=== PATIENT | female | born 1960 | race Caucasian/White ===

== ENCOUNTER 2018-01-20 15:40 | Emergency (ER) | payer BC, OTHER ==
[2018-01-20] MEDS ORDERED: Adacel (T-DAP) 0.5 ML VIAL ONE (16:38)
[2018-01-20] MEDS ORDERED: Bacitracin Zinc 1 Packet ONE (16:39)
--- NOTE | 2018-01-20 16:49 | RAD ---
RIGHT ANKLE THREE VIEWS: HISTORY: Injury to right foot after trauma from door. TECHNIQUE: AP, lateral, and oblique views of the right foot are obtained. FINDINGS: Three views of the right foot demonstrate no evidence of right foot fractures, subluxations, or bony lesions. A small calcaneal bone spur is seen. IMPRESSION: Normal three views right foot. POS: [facility]
== END 2018-01-20 17:00 | disposition home or self-care (01) ==
LOC: ERS 15:40
DX: S91.341A Puncture wound with foreign body, right foot, initial encounter (principal); J45.909 Unspecified asthma, uncomplicated; I10 Essential (primary) hypertension; Z79.899 Other long term (current) drug therapy; W45.8XXA Other foreign body or object entering through skin, initial encounter
CPT/HCPCS: 28190; 90471; 90715

== ENCOUNTER 2018-06-25 23:44 | Observation (INO) | payer OTHER ==
[2018-06-26 00:16] LABS: #Basophils 0.1 thou/uL (0.0-0.2); #Eosinphils 0.9 thou/uL (0.0-0.7); #Lymphocytes 2.7 thou/uL (1.20-3.40); #Monocytes 0.7 thou/uL (0.11-0.59); #Neutrophils 6.1 thou/uL (1.40-6.50); %Basophils 0.6 % (0.0-1.0); %Eosinophils 8.4 % (0.0-10.0); %Lymphocytes 25.8 % (21.0-51.0); %Monocytes 6.6 % (0.0-10.0); %Neutrophils 58.5 % (42.0-75.0); Hemoglobin 12.6 g/dL (12.0-16.0); Mean Corpuscular HGB CONC 33.2 g/dL (32.0-36.0); Mean Corpuscular Hemoglobin 30.1 pg (27.0-31.0); Mean Corpuscular Volume 90.7 fL (78.0-98.0); Mean Platelet Volume 6.6 fL (7.4-10.4); Platelet Count 317 thou/uL (130-400); RBC Distribution Width 12.3 % (11.5-14.5); Red Blood Cell (RBC) Count 4.18 mill/uL (4.20-5.40); White Blood Cell (WBC) Count 10.4 thou/uL (4.8-10.8)
[2018-06-26 00:40] LABS: ALT (SGPT) 21 U/L (8-55); AST (SGOT) 16 U/L (5-34); Albumin 3.7 g/dL (3.5-5.0); Alkaline Phosphatase 117 U/L (40-150); Anion Gap 11 mmol/L (10-20); BUN (Urea Nitrogen) 14 mg/dL (9.8-20.1); Bilirubin, Total 0.4 mg/dL (0.2-1.2); CK (CPK) 145 U/L (29-168); Calc. Creatinine Clearance 0 mL/min (70-130); Calcium 9.3 mg/dL (7.8-10.44); Carbon Dioxide 28 mmol/L (22-29); Chloride 102 mmol/L (98-107); Estimated GFR-MDRD 76; Globulin 3.8 g/dL (2.4-3.5); Glucose 141 mg/dL (70-105); Potassium 3.6 mmol/L (3.5-5.1); Protein, Total 7.5 g/dL (6.0-8.3); Sodium 137 mmol/L (136-145)
[2018-06-26] MEDS ORDERED: hydrALAZINE 20 MG/ML VIAL ONE (00:51)
[2018-06-26] MEDS ORDERED: Acetaminophen 500 MG TAB ONE (02:09)
[2018-06-26 04:02] LABS: Troponin I Less than 0.010 ng/mL (< 0.028)
[2018-06-26 07:18] LABS: Troponin I Less than 0.010 ng/mL (< 0.028)
--- NOTE | 2018-06-26 07:36 | RAD ---
EXAM: Portable chest PROVIDED CLINICAL HISTORY: Chest pain COMPARISON: 08/01/2014 FINDINGS: Cardiac and mediastinal silhouette is within normal limits. No focal consolidation, pleural fluid or pneumothorax evident. IMPRESSION: No evidence for an acute cardiopulmonary process.
--- NOTE | 2018-06-26 08:22 | HP ---
PRIMARY CARE PROVIDER: Berna Alegre. Referred to [facility] by [facility] for chest pain. HISTORY OF PRESENT ILLNESS: The patient was at a meeting last night. She noticed a cramp in her right arm that resolved. Then, she had a sharp pain in her chest. It lasted 15 to 20 minutes. No sweats. She was short of breath with it. According to a witness at bedside, she turned action. She had no dizziness at that time, but was dizzy earlier in the day. No fainting. PAST MEDICAL HISTORY: Hypertension, asthma. MEDICATIONS: She has an inhaler. She takes Hyzaar 50/12.5 once a day. ALLERGIES: ALLERGIC TO PENICILLINS, CAUSED ITCHING, IT IS A REMOTE HISTORY. PAST SURGICAL HISTORY: Cholecystectomy, tubal ligation, and removal of a vaginal cyst. FAMILY HISTORY: There is coronary artery disease on her mother side of the family. Her maternal grandfather had diabetes. SOCIAL HISTORY: . Full code status. Son, Kenny Mclaughlin, is next of kin. She quit smoking 5 years ago. Smoked 1 pack a day for many years. Uses very occasional alcohol. REVIEW OF SYSTEMS: GENERAL: Some headache with the nitroglycerin. No fainting. No fever or chills. EYES: She has blurred vision occasionally. She relates it to spending many hours in front of a computer. No double vision. No flashing lights. EAR, NOSE, AND THROAT: No ear pain or drainage. No nasal bleeding. No trouble swallowing. CARDIAC: No chest pressure, chest pain, or orthopnea. RESPIRATIONS: As it has been a long time since she has had an asthma attack, but she states she has had a dry cough for a while. GASTROINTESTINAL: No nausea, vomiting, abdominal pain, or diarrhea. GENITOURINARY: No hematuria, dysuria, or nocturia. MUSCULOSKELETAL: She states she has occasional "Charley horse in her legs." Otherwise, no complaints. NEUROLOGICAL: No strokes, seizures, or focal weakness. PSYCHIATRIC: No anxiety or depression. SKIN: No bruising, bleeding, or rash. HEME/LYMPH: No tender or swollen lymph nodes in the axilla, inguinal, or cervical area. PHYSICAL EXAMINATION: GENERAL: She is alert, pleasant lady, in no distress. VITAL SIGNS: Blood pressure 144/72, pulse 72, respirations 16, and temperature 98.5. HEAD, EYES, EARS, NOSE, AND THROAT: Reveal pupils are equal, round, and reactive to light. Extraocular movements are intact. Sclerae are white. Nose is clear. Oral mucous membranes are wet. Dental hygiene is good. NECK: No jugular venous distention, adenopathy, or thyromegaly. CHEST: Clear to auscultation and percussion. HEART: Had a regular rate and rhythm. First and second heart sounds are clear. No murmurs or gallops. ABDOMEN: Soft. Bowel sounds are normal. There is no hepatosplenomegaly. No mass. No rebound. EXTREMITIES: Reveal no cyanosis, clubbing, or edema. PULSES: Carotid, radial, femoral, and dorsalis pedis pulses are intact. SKIN: Warm and dry with what looks like athlete's foot on her feet. She states it is simply dry skin. HEME/LYMPH: No tender or swollen lymph nodes in the axilla or inguinal area. NEUROLOGIC: Cranial nerves II through XII are intact. Moves all extremities. IMAGING DATA: EKG normal, reviewed by me. Chest x-ray mildly underpenetrated. No cardiomegaly, CHF, infiltrate, reviewed by me. LABORATORY DATA: CBC unremarkable. Comprehensive metabolic profile, blood sugar 141, otherwise unremarkable. Cardiac enzymes normal x3. ADMITTING DIAGNOSES: 1. Chest pain. 2. Hypertension. 3. History of asthma. PLAN: The patient has had aspirin. Serial troponins are normal. We will do an exercise Cardiolite stress test. Re-evaluate when that is available. Job ID: [id number]
[2018-06-26] MEDS ORDERED: Acetaminophen 325 MG TAB ONE (08:30)
[2018-06-26] MEDS ORDERED: Aspirin 325 mg Enteric Coated Tablet PO SCH (09:00)
[2018-06-26] MEDS ORDERED: Regadenoson 0.4 MG/5 ML SYRINGE ONE (11:39)
--- NOTE | 2018-06-26 12:12 | NM ---
NM Cardiac Stress W EF WF History: [Chest pain, asthma, hypertension] Comparison: None. Findings: Stress only images were obtained after the intravenous administration of 33 mCi technetium 99m sestamibi. No evidence of scar or ischemia. Adequate left ventricular uptake of radiotracer. Normal wall motion. Calculated ejection fraction is 76%. Impression: Normal nuclear medicine cardiac stress test and injection fraction.
--- NOTE | 2018-06-26 15:00 | DIS ---
DATE OF ADMISSION: 06/26/2018 DATE OF DISCHARGE: 06/26/2018 PRIMARY CARE PROVIDER: Berna Garcia. DISPOSITION: Discharged to home. FINAL DIAGNOSES: 1. Noncardiac chest pain. 2. Hypertension. 3. Asthma. DISCHARGE MEDICATIONS: Hyzaar 50/12.5 once a day. ALLERGIES: PENICILLINS. PENDING AT THE TIME OF DISCHARGE: Nothing. DIET: Regular. HOSPITAL COURSE: The patient presented with atypical sharp chest pain, preceded by cramp in her right arm. She also noted some minimal shortness of breath. EKG which was normal. Chest x-ray was unrevealing. Serial cardiac enzymes were normal. CBC and comprehensive metabolic profile were unremarkable. The patient was unable to do an exercise Cardiolite stress test and required a chemical Cardiolite stress test, it was normal. This was relayed to the patient. She expressed some uncomfortable with not knowing what caused that. I explained to her that we look for life-threatening disease. Her studies are normal. She looks good that she needs to follow up within 1 week with her primary care doctor for further testing if indicated. CONSULTATIONS OBTAINED: No consultations obtained. PROCEDURES DONE: No procedures done. Job ID: [id number]
--- NOTE | 2018-06-29 14:35 | EKG ---
Test Reason : CP Blood Pressure : / mmHG Vent. Rate : 073 BPM Atrial Rate : 073 BPM P-R Int : 154 ms QRS Dur : 074 ms QT Int : 388 ms P-R-T Axes : 039 069 049 degrees QTc Int : 427 ms Normal sinus rhythm Nonspecific ST abnormality Abnormal ECG Confirmed by CORINNE ONTIVEROS ([id number]), editor department MARIA VICTORIA MARKHAM ([id number]) on 06/29/2018 2:35:39 PM Referred By: Confirmed By:CORINNE ONTIVEROS
== END 2018-06-26 15:13 | disposition home or self-care (01) ==
LOC: ERS 23:44 → ERHOLD 06-26 01:38
PROVIDERS: ADMIT Family Medicine; ATTEND Family Medicine
DX: R07.89 Other chest pain (principal); I10 Essential (primary) hypertension; J45.909 Unspecified asthma, uncomplicated; R06.02 Shortness of breath; R25.2 Cramp and spasm; Z79.899 Other long term (current) drug therapy; Z88.0 Allergy status to penicillin; Z87.891 Personal history of nicotine dependence
CPT/HCPCS: 36415; 71045; 78452; 80053; 82550; 84484; 85025; 93005; 93017; 96374; A9500; G0378; J0360; J2785

== ENCOUNTER 2018-10-07 20:45 | Inpatient (IN) | payer OTHER ==
[2018-10-08 00:13] LABS: #Eosinphils 0.1 thou/uL (0.0-0.7); #Lymphocytes 2.6 thou/uL (1.20-3.40); #Neutrophils 12.2 thou/uL (1.40-6.50); %Basophils 0.2 % (0.0-1.0); %Eosinophils 0.5 % (0.0-10.0); %Monocytes 6.5 % (0.0-10.0); %Neutrophils 76.8 % (42.0-75.0); Hemoglobin 13.7 g/dL (12.0-16.0); Mean Corpuscular HGB CONC 33.3 g/dL (32.0-36.0); Mean Corpuscular Hemoglobin 30.6 pg (27.0-31.0); Mean Platelet Volume 6.8 fL (7.4-10.4); Platelet Count 384 thou/uL (130-400); RBC Distribution Width 13.2 % (11.5-14.5); Red Blood Cell (RBC) Count 4.46 mill/uL (4.20-5.40); White Blood Cell (WBC) Count 15.9 thou/uL (4.8-10.8)
[2018-10-08 00:21] LABS: Prothrombin Time 12.7 SEC (12.0-14.7)
[2018-10-08 00:35] LABS: ALT (SGPT) 26 U/L (8-55); AST (SGOT) 14 U/L (5-34); Albumin 3.9 g/dL (3.5-5.0); Alkaline Phosphatase 101 U/L (40-150); Anion Gap 16 mmol/L (10-20); BUN (Urea Nitrogen) 36 mg/dL (9.8-20.1); Bilirubin, Total 0.3 mg/dL (0.2-1.2); Calc. Creatinine Clearance 0 mL/min (70-130); Carbon Dioxide 23 mmol/L (22-29); Chloride 99 mmol/L (98-107); Estimated GFR-MDRD 56; Globulin 3.8 g/dL (2.4-3.5); Glucose 264 mg/dL (70-105); Potassium 4.3 mmol/L (3.5-5.1); Protein, Total 7.7 g/dL (6.0-8.3); Sodium 134 mmol/L (136-145)
[2018-10-08] MEDS ORDERED: Dextrose 5% in Water 1,000 ML IV PRN (00:54)
[2018-10-08] MEDS ORDERED: Insulin Regular 300 UNITS/3 ML VIAL SC PRN (00:54)
[2018-10-08] MEDS ORDERED: Dextrose 50% Abboject 50 ML SYRINGE SLOW IVP PRN (00:54)
[2018-10-08] MEDS ORDERED: Ondansetron ODT 4 MG TAB PO PRN (01:06)
[2018-10-08] MEDS ORDERED: Acetaminophen 650 MG Suppository PR PRN ×2 (01:06→14:44)
[2018-10-08] MEDS ORDERED: Acetaminophen 325 MG TAB PO PRN ×2 (01:06→14:44)
[2018-10-08] MEDS ORDERED: Sodium Chloride 0.9% 1,000 ML IV SCH (01:30)
[2018-10-08] MEDS: Dexamethasone 4 MG TAB PO SCH ×4 (02:07→21:08)
[2018-10-08 03:00] VITALS: BMI 43.9
--- NOTE | 2018-10-08 03:37 | HP ---
PRIMARY CARE PHYSICIAN: Dr. Flower. CHIEF COMPLAINT: Worsening upper extremity weakness and numbness. HISTORY OF PRESENT ILLNESS: Ms. Lunsford is a 57-year-old woman, who is being followed by Neurosurgery for persisting right upper extremity numbness and weakness, which the patient states initially started in June of this year. She underwent an MRI today which demonstrated cord compression at C3/C4. The patient was advised to seek medical attention if her symptoms worsened. She was recently discharged from the hospital on steroids and also had been started on metformin 3 days ago due to new onset of diabetes, which was deemed to be associated with steroid use. The patient states she was doing well until earlier today, when she began to experience the tingling sensation in her left arm. The patient states her symptoms have primarily involved the right upper extremity. She describes numbness and weakness with an occasional pulling sensation. The numbness extends to her shoulder. Her left arm today however has started feeling "tingly" with some very minimal weakness. The patient states she was afraid, given the changes and opted to come in for evaluation. The patient has been seen by Dr. Marquis Almonte, who has advised keeping her overnight and for review by Dr. Saha in the morning for possible surgery. REVIEW OF SYSTEMS: At this present time, the patient denies having any pain. No nausea or vomiting. Denies having any shortness of breath or chest discomfort. No abdominal pain or cramping. She denies having any urinary incontinence or stool incontinence. She does still have weakness in the right arm, but has not noted any further worsening. PAST MEDICAL HISTORY: 1. Hypertension. 2. New onset diabetes mellitus. 3. Pulmonary disease. 4. Asthma. 5. Vaginal cysts. 6. Cervical cord compression. PAST SURGICAL HISTORY: 1. Vaginal cyst removed. 2. Cholecystectomy. 3. Tubal ligation. SOCIAL HISTORY: The patient denies any tobacco use, alcohol use, or illicit drug use. ALLERGIES: PENICILLIN. CURRENT MEDICATIONS: 1. Dexamethasone. 2. Losartan/Hydrochlorothiazide. 3. Metformin. PHYSICAL EXAMINATION: GENERAL: The patient appears overweight, well developed, well nourished, and is in no acute distress. VITAL SIGNS: Temperature 98.5, pulse 82, respirations 18, O2 saturation 93% on room air, and blood pressure 142/86. HEENT: Normocephalic and atraumatic. Pupils are equal, round, and reactive to light. Sclerae icterus. Oropharynx is clear. NECK: Supple without lymphadenopathy. Does have an [place] collar in place. Therefore, range of motion is limited. LUNGS: Clear to auscultation bilaterally. CARDIAC: Regular rate and rhythm. ABDOMEN: Soft, nontender, nondistended. Normoactive bowel sounds present. EXTREMITIES: No lower leg swelling or edema. NEUROLOGIC: Alert and oriented x3. Reduced strength in the right upper extremity with reduced sensation in the right lower and upper extremity. Right arm numbness extends from the fingers to the right shoulder. Reports tingling sensation in the left upper extremity. Power 3/5 in the right hand and 4/5 in the left. Plantar reflexes intact. LABORATORY DATA: White blood count 15.9, hemoglobin 13.7, hematocrit 41.1, and platelets 384. Sodium 134, potassium 4.3, BUN 26, creatinine 1.06, GFR 56, glucose 264, calcium 10. LFTs unremarkable. Albumin 3.9. IMAGING DATA: 1. Chest x-ray done. 2. No report available for MRI. IMPRESSION AND PLAN: Ms. Lunsford is a pleasant 57-year-old woman, who has been referred for management of the following. 1. Severe cervical spine stenosis with cord compression as per the patient's report of MRI done earlier today. The patient with a new tingling in the left upper extremity and persistent weakness in the right upper extremity. Neurosurgery aware and Dr. Saha will review in the morning, likely for a discussion on surgical options. Continue to monitor. Resume steroids. 2. New onset of diabetes mellitus. The patient has been on metformin for last 3 days. We will check CBC and BMP. If renal function adequate, we will resume metformin. We will also initiate insulin sliding scale. 3. Hypertension. Resume home medications once reconciled. Monitor blood pressure. 4. Gastrointestinal prophylaxis. 5. Deep venous thrombosis prophylaxis with mechanical SCDs. Pharmacoprophylaxis contraindicated given the possibility of surgery. 6. Code status, full. Surrogate decision maker could not be appointed at this time. The patient's case was discussed with Dr. Bustamante, who agrees with plan of care as described above. Job ID: [id number]
[2018-10-08 05:23] LABS: #Eosinphils 0.1 thou/uL (0.0-0.7); #Lymphocytes 2.4 thou/uL (1.20-3.40); #Monocytes 0.8 thou/uL (0.11-0.59); #Neutrophils 10.7 thou/uL (1.40-6.50); %Eosinophils 0.9 % (0.0-10.0); %Lymphocytes 16.8 % (21.0-51.0); %Monocytes 5.8 % (0.0-10.0); %Neutrophils 76.5 % (42.0-75.0); Hemoglobin 12.7 g/dL (12.0-16.0); Mean Corpuscular HGB CONC 32.8 g/dL (32.0-36.0); Mean Corpuscular Hemoglobin 30.5 pg (27.0-31.0); Mean Corpuscular Volume 93.1 fL (78.0-98.0); Platelet Count 338 thou/uL (130-400); RBC Distribution Width 13.3 % (11.5-14.5); Red Blood Cell (RBC) Count 4.16 mill/uL (4.20-5.40)
[2018-10-08 05:46] LABS: Anion Gap 13 mmol/L (10-20); BUN (Urea Nitrogen) 34 mg/dL (9.8-20.1); Calc. Creatinine Clearance 131 mL/min (70-130); Calcium 9.7 mg/dL (7.8-10.44); Carbon Dioxide 25 mmol/L (22-29); Chloride 101 mmol/L (98-107); Estimated GFR-MDRD 61; Glucose 226 mg/dL (70-105); Potassium 4.4 mmol/L (3.5-5.1); Sodium 135 mmol/L (136-145)
[2018-10-08] MEDS: HumaLOG 300 UNITS/3 ML VIAL SC PRN ×3 (05:57→21:38)
--- NOTE | 2018-10-08 07:11 | RAD ---
CHEST ONE VIEW: INDICATIONS: Weakness in the extremities. COMPARISON: 06/26/2018 IMPRESSION: The examination is unchanged from the comparison. No acute cardiopulmonary abnormalities. POS: [facility]
[2018-10-08] MEDS: Famotidine/PF 20 mg/2ml Vial SLOW IVP SCH ×2 (08:01→20:35)
[2018-10-08] MEDS: metFORMIN 500 MG TAB PO SCH ×2 (08:01→18:11)
[2018-10-08] MEDS: Losartan/Hydrochlorothiazide 100 mg/25 mg Tablet PO SCH (08:01)
[2018-10-08] MEDS ORDERED: Clindamycin/D5W 900 mg/50 ml Premix Bag ONE (08:22)
[2018-10-08] MEDS ORDERED: Levofloxacin 500 mg/D5W 100 ml Premix Bag ONE (08:22)
--- NOTE | 2018-10-08 08:28 | RAD ---
EXAM: XR Cervical Sp Com W/Obl Fl/Ex DATE: 10/08/2018 6:37 AM INDICATION: Surgical planning COMPARISON: None. FINDING: Lateral masses are symmetric. There is mild multilevel disc degenerative disease most prono unced at C4-5 and C5-6. There is slight retrolisthesis of C4 on C5 in the neutral lateral positioning with no abnormal translational motion. There is very subtle anterolisthesis of C3 on C4 t hat is accentuated with flexion but reduced in the neutral and hyperextension position. Prevertebral soft tissues are normal appearing. Lung apices are clear. IMPRESSION: 1. Mild spondylosis of the cervical spine. 2. Slight retrolisthesis of C4 on C5 without abnormal translational motion. 3. Mild anterolisthesis of C3 on C4 with flexion only. This is reduced on the neutral and hyperextens ion lateral positions.
[2018-10-08] MEDS ORDERED: Thrombin 5000 UNITS/5 ML VIAL ONE (09:09)
[2018-10-08] MEDS ORDERED: Sodium Chloride 0.9% 10 ML ONE (09:09)
--- NOTE | 2018-10-08 10:15 | CON ---
DATE OF CONSULTATION: HISTORY OF PRESENT ILLNESS: Ms. Lunsford is a 57-year-old female, known to our Neurosurgery Group. She was seen yesterday in our office for severe cervical cord compression with weakness in the upper extremity. She went to the emergency department last night for worsening symptoms of weakness in the upper extremity and imbalance. She has been admitted to the hospital and I am seeing her this morning. She is resting comfortably in her room. She has weakness more profoundly in the right hand, but weakness in right upper extremity. She has numbness and tingling in both hands and burning sensation in forearm. Her hand feels different than the other one. She has some pain in the low back and weakness in her legs. MRI was done at [facility] showing a severe cord compression at C4-5 with some compression at C5-6 as well. REVIEW OF SYSTEMS: A 10-point review of systems has been completed and is negative other than stated in the above HPI. PAST MEDICAL HISTORY: Hypertension, new onset of diabetes type 2, pulmonary disease, asthma, vaginal cyst, and cervical cord compression. PAST SURGICAL HISTORY: Vaginal cyst removed, cholecystectomy, and tubal ligation. SOCIAL HISTORY: The patient denies tobacco use, alcohol use, or any other drug use. ALLERGIES: PENICILLIN. CURRENT MEDICATIONS: 1. Dexamethasone. 2. Losartan/Hydrochlorothiazide. 3. Metformin. PHYSICAL EXAMINATION: CONSTITUTIONAL: The patient is alert and oriented. She is not in any visible distress. VITAL SIGNS: She is afebrile. HEENT: Head is normocephalic and atraumatic. Pupils are equal, round, and reactive to light. Extraocular movements are intact. Hearing is intact. Moist mucous membranes. RESPIRATIONS: Normal work of breathing on room air. Symmetric chest rise. EXTREMITIES: The patient is able to move all 4 extremities. There is weakness in the right upper extremity, 4+/5 in right deltoids and biceps, 4/5 triceps on the right and 4- wrist extension, finger extension, and finger intrinsics on the right. There is decreased sensation in the right hand compared to the left. NEUROLOGIC: The patient is awake and oriented x3. Speech is spontaneous and fluent. Normal fund of knowledge. Cranial nerves II through XII are intact. There is sensory change in the right hand compared to the left. There are brisk reflexes and 3+ clonus. IMAGING: MRI of cervical spine shows severe cord compression at C4-5 with cord edema as well as stenosis at C5-6. ASSESSMENT AND PLAN: Dr. Rodriguez has offered to perform an anterior cervical discectomy and fusion to relieve this cord compression. We will do that later this morning. We need flexion and extension x-rays for surgical planning. If there are any further questions, please contact the Neurosurgery Team. Job ID: [id number] MTDD
[2018-10-08] MEDS ORDERED: Fentanyl 100 MCG/2 ML VIAL ONE ×3 (10:19→13:39)
[2018-10-08] MEDS ORDERED: Promethazine HCl 25 MG/ML VIAL SLOW IVP PRN (11:08)
[2018-10-08] MEDS ORDERED: Ondansetron HCl/PF 4 MG/2 ML Vial IVP PRN (11:08)
[2018-10-08] MEDS ORDERED: Promethazine HCl 25 MG/ML VIAL IM PRN ×2 (11:08→14:44)
[2018-10-08] MEDS ORDERED: Ondansetron PF 4 MG/2 ML Vial IVP PRN (14:44)
[2018-10-08] MEDS ORDERED: Milk Of Magnesia 30 ML UDCUP PO PRN (14:44)
[2018-10-08] MEDS ORDERED: diphenhydrAMINE 25 MG CAP PO PRN (14:44)
[2018-10-08] MEDS ORDERED: Mag-Al 1200 mg/1200 mg/30 ML UDCUP PO PRN (14:44)
[2018-10-08] MEDS ORDERED: Promethazine 25 MG TAB PO PRN (14:44)
[2018-10-08] MEDS ORDERED: Promethazine HCl 12.5 MG SUPP PR PRN (14:44)
[2018-10-08] MEDS ORDERED: Morphine 4 MG/ML VIAL SLOW IVP PRN (14:44)
[2018-10-08] MEDS ORDERED: Bisacodyl 10 MG SUPP PR PRN (14:44)
[2018-10-08] MEDS ORDERED: Acetaminophen/Codeine 30-300mg Tablet PO PRN (14:44)
[2018-10-08] MEDS ORDERED: Prochlorperazine 10 MG/2 ML VIAL IM PRN (14:44)
[2018-10-08] MEDS ORDERED: diphenhydrAMINE 50 MG/ML VIAL IVP PRN (14:44)
[2018-10-08] MEDS ORDERED: tiZANidine HCl 4 MG TAB PO PRN (14:44)
[2018-10-08] MEDS ORDERED: Morphine 2 MG/ML SYRINGE SLOW IVP PRN (14:47)
--- NOTE | 2018-10-08 14:56 | OP ---
DATE OF PROCEDURE: 10/08/2018 MEDIA/INSTRUCTIONAL DESIGNER: Zaida León PA-C. PREOPERATIVE INDICATION: Prevent further neurological deterioration. PREOPERATIVE DIAGNOSIS: Cervical intervertebral disk disease with cord compression and myelopathy at C4-C5, C5-C6. POSTOPERATIVE DIAGNOSIS: Cervical intervertebral disk disease with cord compression and myelopathy at C4-C5, C5-C6. PROCEDURES PERFORMED: Anterior cervical diskectomy, intervertebral arthrodesis, placement of intervertebral biomechanical device, anterior cervical plating C4-C5 and C5-C6, local morselized autograft, morselized allograft, and operating microscope. PREOPERATIVE MEDICATIONS: 1. Levaquin 500 mg IV. 2. Clindamycin 900 mg IV. DRAIN NUMBER: Zero. DRAIN TYPE: None. DESCRIPTION OF PROCEDURE: The patient was brought to the operating room. Keeping the neck in normal anatomic alignment, general endotracheal anesthesia was induced. The patient was carefully positioned supine on the operating table with her head gently supported by a gel-filled doughnut shaped headrest. A lateral fluoro radiograph was used to plan our incision. The right side of the neck was sterilely prepped and draped. We opened our incision with a 10 blade knife and controlled bleeding with bipolar cautery. We dissected sharply to the platysma and cut this muscle in line with our incision. We continued our dissection medial to the sternocleidomastoid and lateral to the trachea and esophagus until we arrived to the prevertebral space. We placed a marker at C4-C5 and took a lateral fluoro radiograph to confirm the levels upon which we were operating. We then elevated the longus colli muscles off the anterior surface of C4, C5, and C6 and placed self-retaining retractors beneath them. Distraction pins were placed at C4 and C6 and we distracted across both of the intervening interspaces. We incised the C4-C5 and C5-C6 interspace with a 15 blade knife and removed disk contents using curettes and rongeurs. As we approached the posterior longitudinal ligament, the operative microscope was brought into the field. Under microscopic magnification and using microsurgical techniques, we removed the remainder of the intervertebral disk. We accessed the ventral epidural space with a microcurette and using [place] rongeurs, we removed posterior osteophytes and posterior longitudinal ligament across the entire interspace from one neural foramen all the way to the other, decompressing the thecal sac along the way. This occurred at C4-C5 and C5-C6. We then turned our attention to arthrodesis. Using curettes, we prepared the endplates for grafting. We measured the height of the interspace to 8 mm at C4-C5 and 7 mm at C5-C6. The appropriately-sized PEEK intervertebral grafts were brought into the field. Osteophytes removed during our decompression were cleaned of soft tissue attachments morcellized and added into demineralized bone matrix to form a fusion substrate. The substrate was packed into the PEEK grafts and those grafts were advanced into their interspaces under radiographic guidance to the appropriate depth. We removed our distraction pins and the operative microscope. A 31 mm anterior cervical plate was brought into the field. We drilled fixed wing pilot holes through the plate into the vertebral bodies at C4, C5, and C6 and affixed the plate using 14 mm screws. Fixed angle screws were used at C6 and variable angle screws at C4 and C5. We engaged the locking mechanism over each of the 6 screws. We irrigated copiously with bacitracin irrigation. We took AP and lateral fluoro radiographs, confirmed adequate position of all our instrumentation. We closed in anatomical layers and we applied a sterile dressing. This was a clean case, no contamination. Job ID: [id number]
[2018-10-08] MEDS: Acetaminophen/Codeine 30-300mg Tablet PO PRN ×2 (15:39→20:35)
[2018-10-08] MEDS ORDERED: Clindamycin/D5W 900 MG in Premix Bag 1 BAG IVPB SCH ×2 (16:00→19:00)
[2018-10-08] MEDS: Sodium Chloride 0.9% 1,000 ML IV SCH (16:05)
[2018-10-08] MEDS ORDERED: Cepastat Lozenges 1 LOZ PO PRN (18:04)
--- NOTE | 2018-10-08 18:37 | PDOC.HOSPP ---
- Subjective Subjective: f/u for cervical radiculopathy/myelopathy and RU/RLE weakness s/p C4-C5, C5-C6 decompression. Feels better overall but some stiffness in neck. - Objective Vital Signs & Weight: Vital Signs (12 hours) Temp Pulse Resp BP Pulse Ox 10/08/18 14:20 98 F 58 L 18 150/81 H 96 Weight Weight 280 lb 2 oz I&O: 10/07/18 10/08/18 10/09/18 06:59 06:59 06:59 Intake Total 770 Balance 770 Result Diagrams: 10/08/18 04:49 10/08/18 04:49 Additional Labs: Accuchecks 10/08/18 10/08/18 10/08/18 16:03 08:01 05:24 POC Glucose 235 H 205 H 227 H Radiology Reviewed by me: Yes (PCXR - no acute changes) ROS - Review of Systems All systems: All other ROS were reviewed and found negative. - Medication Medications: Active Medications Generic Name Dose Route Start Last Admin Trade Name Freq PRN Reason Stop Dose Admin Acetaminophen/Codeine Phosphate 2 tab 10/08/18 14:44 10/08/18 15:39 Tylenol #3 PO 2 tab Q3H PRN Administration PAIN (4-6) Famotidine 20 mg 10/08/18 09:00 10/08/18 08:01 Pepcid SLOW IVP Not Given Q12HR RAFA HCTZ/Losartan Potassium 1 tab 10/08/18 09:00 10/08/18 08:01 Hyzaar 100/25 PO Not Given DAILY RAFA Sodium Chloride 1,000 mls @ 75 mls/hr 10/08/18 14:44 10/08/18 16:05 Normal Saline 0.9% IV Not Given .[id number] RAFA Insulin Human Lispro 0 units 10/08/18 00:54 10/08/18 18:09 Humalog SC 3 unit .MILD SLIDING SCALE PRN Administration Mild Correctional Scale Insulin Human Lispro 0 units 10/08/18 00:54 10/08/18 05:57 Humalog SC 2 unit .BEDTIME SLIDING SC PRN Administration Bedtime Correctional Scale Metformin HCl 1,000 mg 10/08/18 08:00 10/08/18 18:11 Glucophage PO 1,000 mg BID-WM RAFA Administration - Exam NAD, awake alert Eye: PERRL, anicteric sclera ENT: normocephalic atraumatic, no oropharyngeal lesions Neck: supple, symmetric, no JVD Heart: RRR, no murmur, no gallops, no rubs Respiratory: CTAB, no wheezes, no rales, no ronchi Gastrointestinal: soft, non-tender, non-distended, normal bowel sounds Extremities: no cyanosis, no edema Skin: normal turgor, no lesions Neurological: CN's grossly intact, normal sensation to touch Musculoskeletal: no muscle wasting, generalized weakness (mild decreased R office worker strength) Psychiatric: normal affect, A&O x 3 Hosp A/P (1) Cervical myelopathy with cervical radiculopathy Code(s): M47.12 - OTHER SPONDYLOSIS WITH MYELOPATHY, CERVICAL REGION Status: Acute Plan: s/p cervical decompression, pain control, C-collar, PT/OT (2) Cervical spinal stenosis Code(s): M48.02 - SPINAL STENOSIS, CERVICAL REGION Status: Acute Plan: See above, consider HH with PT/OT (3) Diabetes mellitus type II, uncontrolled Code(s): E11.65 - TYPE 2 DIABETES MELLITUS WITH HYPERGLYCEMIA Status: Chronic Plan: ISS, continue Metformin, ADA (4) HTN (hypertension) Code(s): I10 - ESSENTIAL (PRIMARY) HYPERTENSION Status: Chronic Qualifiers: Hypertension type: essential hypertension Qualified Code(s): I10 - Essential (primary) hypertension Plan: Continue Losartan/HCTZ, serial monitoring - Plan plan discussed w/ family, continue antibiotics, PT/OT, social economist, out of bed/ambulate, DVT proph w/SCDs Stable currently Continue Pain control as clinically indicated OOB with PT/OT Continue IVF's AM lab: BMP, CBC Likely home in 24h with HH/PT/OT
[2018-10-09] MEDS: Dexamethasone 4 MG TAB PO SCH ×4 (04:48→21:08)
[2018-10-09 05:43] LABS: Anion Gap 14 mmol/L (10-20); BUN (Urea Nitrogen) 24 mg/dL (9.8-20.1); Calc. Creatinine Clearance 140 mL/min (70-130); Calcium 10.1 mg/dL (7.8-10.44); Carbon Dioxide 27 mmol/L (22-29); Chloride 98 mmol/L (98-107); Estimated GFR-MDRD 65; Glucose 173 mg/dL (70-105); Potassium 4.3 mmol/L (3.5-5.1); Sodium 135 mmol/L (136-145)
[2018-10-09 06:12] LABS: Band 9 % (5-11); Lymphocytes 18 % (21-51); MDiff Complete? YES; Mean Corpuscular HGB CONC 31.8 g/dL (32.0-36.0); Mean Corpuscular Hemoglobin 29.8 pg (27.0-31.0); Mean Corpuscular Volume 93.8 fL (78.0-98.0); Mean Platelet Volume 6.8 fL (7.4-10.4); Monocytes 6 % (0-10); Neutrophil 67 % (42-75); Platelet Count 418 thou/uL (130-400); RBC Distribution Width 13.2 % (11.5-14.5); Red Blood Cell (RBC) Count 4.68 mill/uL (4.20-5.40); White Blood Cell (WBC) Count 20.2 thou/uL (4.8-10.8)
[2018-10-09] MEDS: Sodium Chloride 0.9% 1,000 ML IV SCH ×2 (06:55→16:05)
[2018-10-09] MEDS: HumaLOG 300 UNITS/3 ML VIAL SC PRN ×3 (07:22→16:04)
[2018-10-09] MEDS: metFORMIN 500 MG TAB PO SCH ×2 (08:53→16:04)
[2018-10-09] MEDS: Famotidine/PF 20 mg/2ml Vial SLOW IVP SCH ×2 (08:54→21:08)
[2018-10-09] MEDS: Losartan/Hydrochlorothiazide 100 mg/25 mg Tablet PO SCH (09:42)
--- NOTE | 2018-10-09 13:57 | PRG ---
DATE OF SERVICE: 10/09/2018 Ms. Lunsford is one day out from anterior cervical diskectomy and fusion C4-5, C5-6. Ms. Lunsford is doing well this morning. 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 She still has heaviness and strength loss on that side. However, she is showing improvement so far. She says the tingling in her feet has improved also. Ms. Lunsford is wanting to stay one more night in the hospital while her friends are arranging her home, so that she can move around more easily with the use of a walker while she is recovering. She has no recorded fevers overnight. There were no events overnight. Ms. Lunsford is able to discharge home when she is ready. Hope that physical therapy will work with her some while she is here. Medications are already arranged and so is her followup appointment in our office. Job ID: [id number]
--- NOTE | 2018-10-09 17:46 | PDOC.HOSPP ---
- Subjective Subjective: f/u s/p C4-C5, C5-C6 diskectomy POD #1. Feels better overall with increased strength in R hand. - Objective Vital Signs & Weight: Vital Signs (12 hours) Temp Pulse Resp BP Pulse Ox 10/09/18 15:28 97.3 F L 60 18 146/84 H 97 10/09/18 10:57 97.5 F L 63 18 143/83 H 98 10/09/18 09:41 97.9 F 67 18 157/84 H 98 Weight Weight 280 lb 2 oz I&O: 10/08/18 10/09/18 10/10/18 06:59 06:59 06:59 Intake Total 770 Balance 770 Result Diagrams: 10/09/18 05:10 10/09/18 05:10 Additional Labs: Accuchecks 10/09/18 10/09/18 10/09/18 15:33 11:02 06:11 POC Glucose 185 H 213 H 173 H 10/08/18 21:15 POC Glucose 264 H ROS - Review of Systems All systems: All other ROS were reviewed and found negative. - Medication Medications: Active Medications Generic Name Dose Route Start Last Admin Trade Name Freq PRN Reason Stop Dose Admin Acetaminophen/Codeine Phosphate 2 tab 10/08/18 14:44 10/08/18 20:35 Tylenol #3 PO 2 tab Q3H PRN Administration PAIN (4-6) Dexamethasone 4 mg 10/08/18 22:00 10/09/18 16:05 Decadron PO 4 mg 0400,1000,1600,2200 RAFA Administration Famotidine 20 mg 10/08/18 09:00 10/09/18 08:54 Pepcid SLOW IVP 20 mg Q12HR RAFA Administration HCTZ/Losartan Potassium 1 tab 10/08/18 09:00 10/09/18 09:42 Hyzaar 100/25 PO 1 tab DAILY RAFA Administration Sodium Chloride 1,000 mls @ 75 mls/hr 10/08/18 14:44 10/09/18 16:05 Normal Saline 0.9% IV Not Given .[id number] RAFA Insulin Human Lispro 0 units 10/08/18 00:54 10/09/18 16:04 Humalog SC 2 unit .MILD SLIDING SCALE PRN Administration Mild Correctional Scale Insulin Human Lispro 0 units 10/08/18 00:54 10/08/18 21:38 Humalog SC 3 unit .BEDTIME SLIDING SC PRN Administration Bedtime Correctional Scale Metformin HCl 1,000 mg 10/08/18 08:00 10/09/18 16:04 Glucophage PO 1,000 mg BID-WM RAFA Administration Sodium Chloride 10 ml 10/08/18 14:44 10/08/18 20:36 Flush - Normal Saline IVF 10 ml PRN PRN Administration Saline Flush Throat Lozenges 1 leodan 10/08/18 18:04 10/09/18 04:48 Cepastat Lozenges PO 1 leodan PRN PRN Administration .SORE THROAT - Exam NAD, awake alert Eye: PERRL, anicteric sclera ENT: normocephalic atraumatic, no oropharyngeal lesions Neck: supple, symmetric, no JVD, no Thyromegaly Heart: RRR, no murmur, no gallops, no rubs Respiratory: CTAB, no wheezes, no rales, no ronchi Gastrointestinal: soft, non-tender, non-distended, normal bowel sounds Extremities: no cyanosis, no clubbing, no edema Skin: normal turgor, no lesions Neurological: CN's grossly intact, no new deficit (R meeting/event planner strength 4/5 compared to L) Psychiatric: normal behavior, A&O x 3 Hosp A/P (1) Cervical myelopathy with cervical radiculopathy Code(s): M47.12 - OTHER SPONDYLOSIS WITH MYELOPATHY, CERVICAL REGION Status: Acute Plan: s/p ACDF POD #1, pain control, ROM exercises, C-collar (2) Cervical spinal stenosis Code(s): M48.02 - SPINAL STENOSIS, CERVICAL REGION Status: Acute Plan: See above #1 (3) Diabetes mellitus type II, uncontrolled Code(s): E11.65 - TYPE 2 DIABETES MELLITUS WITH HYPERGLYCEMIA Status: Chronic Plan: Labile due to Dexamethasone, continue ISS, Metformin, ADA (4) HTN (hypertension) Code(s): I10 - ESSENTIAL (PRIMARY) HYPERTENSION Status: Chronic Qualifiers: Hypertension type: essential hypertension Qualified Code(s): I10 - Essential (primary) hypertension Plan: Continue Losartan/HCTZ and monitor response - Plan PT/OT, social service worker, incentive spirometry, out of bed/ambulate, DVT proph w/ SCDs Stable currently Continue pain control OOB/ambulate CM assisting with HH/PT on d/c Likely home in 24h
[2018-10-10] MEDS: Dexamethasone 4 MG TAB PO SCH ×3 (04:24→16:45)
[2018-10-10] MEDS: HumaLOG 300 UNITS/3 ML VIAL SC PRN (06:09)
[2018-10-10] MEDS: Sodium Chloride 0.9% 1,000 ML IV SCH (06:32)
[2018-10-10] MEDS: Famotidine/PF 20 mg/2ml Vial SLOW IVP SCH (09:38)
[2018-10-10] MEDS: metFORMIN 500 MG TAB PO SCH ×2 (09:38→16:45)
[2018-10-10] MEDS: Losartan/Hydrochlorothiazide 100 mg/25 mg Tablet PO SCH (09:38)
--- NOTE | 2018-10-10 14:22 | PRG ---
DATE OF SERVICE: 10/10/2018 This is Alberto Su PA-C dictating a report for Cahparro Narayanan MD. Ms. Lunsford is now postoperative day #2, having undergone C4-C6 ACDF. She states she is feeling significantly better even compared to yesterday. She has good strength in the bilateral upper extremities and has had some difficulty with swallowing, although is tolerating a liquid diet as well as pills. She was discharged yesterday, however, needed some more time for recovery as well as for her family to prepare her home. She is ready for discharge today. She has been up walking, and she will follow up with Dr. Rodriguez and Dr. Cerda postoperatively. She is again doing well neurosurgically. We will call with questions or concerns. Otherwise, she is safe for discharge within the time. Job ID: [id number]
[2018-10-10 15:19] VITALS: BP 141/81; TEMP 97.7
--- NOTE | 2018-10-11 05:43 | DIS ---
DATE OF ADMISSION: 10/07/2018 DATE OF DISCHARGE: 10/10/2018 DISCHARGE DIAGNOSES: 1. Cervical myelopathy with cervical radiculopathy status post anterior cervical diskectomy, C4 on C5 and C5 on C6, 10/08/2018. 2. Cervical spinal stenosis. 3. Diabetes mellitus type 2, labile. 4. Hypertension, stable. CONSULTATIONS: Dr. Rodriguez with Neurosurgical Service. PERTINENT LAB AND X-RAY FINDINGS: Basic metabolic profile within normal limits. CBC showed a white blood cell count ranged between 14.0 to 20.2. Portable chest x-ray dated 10/07/2018, showed no acute cardiopulmonary process. Cervical spine radiographs dated 10/08/2018, showed mild spondylosis of the cervical spine. Retrolisthesis of C4 on C5. Mild anterolisthesis of C3 on C4. HOSPITAL COURSE: The patient was initially admitted after presenting with severe cervical cord compression with weakness of the right upper and lower extremity. The patient underwent general evaluation including MRI imaging showing severe cord compression at C4 on C5, C5 on C6. The patient was evaluated by the Neurosurgical Services with recommendations to pursue surgical intervention. The patient underwent anterior cervical diskectomy on 10/08/2018 without complication. Neurologic deficits including weakness of the right upper and lower extremity, improved postoperatively as patient was ambulating with a rolling walker and political geographer strength was returning to baseline levels. The patient continued to clinically improve with recommendations for ongoing physical and occupational therapy through home health services after discharge. The patient received oral pain medications with Tylenol No. 3 and Zanaflex for muscle spasms. The patient overall clinically stable and tolerating regular oral intake. I have examined the patient at the time of discharge and discussed followup instructions. The patient verbalized understanding and agreement ready for discharge on 10/10/2018. DISCHARGE MEDICATIONS: 1. Losartan/hydrochlorothiazide 100/25 mg 1 tablet p.o. daily. 2. Metformin 1000 mg p.o. b.i.d. 3. Tylenol No. 3 of 300 mg/30 mg one to two tablets p.o. q.6 hours p.r.n. pain. 4. Dexamethasone 4 mg p.o. t.i.d. x2 days, followed by 1 tab p.o. b.i.d. x2 days, followed by 1 tab p.o. daily x2 days. 5. Zanaflex 4 mg p.o. q.6 hours p.r.n. muscle spasms. FOLLOWUP: The patient may follow up with her primary care provider, Dr. Rhonda Flower, within 7 days of discharge. The patient will follow up with Dr. Rodriguez and neurosurgical team and to call his office for appointment time and date. CONDITION ON DISCHARGE: Stable. ACTIVITY: Ad-martha. DIET: ADA and heart healthy. SPECIAL INSTRUCTIONS: A rolling walker with ambulation. Cervical collar per neurosurgical instructions. CODE STATUS: Full. DISPOSITION: Home with [facility], 10/10/2018. Job ID: [id number]
== END 2018-10-10 18:20 | disposition home health service (06) | DRG 472 ==
LOC: ERS 20:45 → SURG A 21:30
PROVIDERS: ADMIT Hospitalist; ATTEND Hospitalist
PROC: 0RG20A0 Fusion of 2 or more Cervical Vertebral Joints with Interbody Fusion Device, Anterior Approach, Anterior Column, Open Approach (ICD-10-PCS; principal; 2018-10-08)
PROC: 00NW0ZZ Release Cervical Spinal Cord, Open Approach (ICD-10-PCS; 2018-10-08)
PROC: 0RT30ZZ Resection of Cervical Vertebral Disc, Open Approach (ICD-10-PCS; 2018-10-08)
DX: M50.21 Other cervical disc displacement, high cervical region (principal); G99.2 Myelopathy in diseases classified elsewhere; I10 Essential (primary) hypertension; E11.9 Type 2 diabetes mellitus without complications; J45.909 Unspecified asthma, uncomplicated; M48.02 Spinal stenosis, cervical region; M54.12 Radiculopathy, cervical region; Z98.51 Tubal ligation status; Z90.49 Acquired absence of other specified parts of digestive tract; Z88.0 Allergy status to penicillin
CPT/HCPCS: 36415; 36416; 71045; 72052; 76000; 80048; 80053; 85025; 85610; 85730; 93005; C1713; C1776; J0780; J1956; J3010; J3490; J8540; S0028

== ENCOUNTER 2018-10-28 21:13 | Inpatient (IN) | payer BC, OTHER ==
[2018-10-28 21:53] LABS: #Basophils 0.1 thou/uL (0.0-0.2); #Eosinphils 0.5 thou/uL (0.0-0.7); #Lymphocytes 2.7 thou/uL (1.20-3.40); #Monocytes 0.8 thou/uL (0.11-0.59); #Neutrophils 3.6 thou/uL (1.40-6.50); %Basophils 0.7 % (0.0-1.0); %Eosinophils 6.6 % (0.0-10.0); %Neutrophils 46.7 % (42.0-75.0); Hemoglobin 11.9 g/dL (12.0-16.0); Mean Corpuscular HGB CONC 34.9 g/dL (32.0-36.0); Mean Corpuscular Hemoglobin 32.1 pg (27.0-31.0); Mean Platelet Volume 6.9 fL (7.4-10.4); Platelet Count 277 thou/uL (130-400); RBC Distribution Width 12.6 % (11.5-14.5); Red Blood Cell (RBC) Count 3.71 mill/uL (4.20-5.40); White Blood Cell (WBC) Count 7.6 thou/uL (4.8-10.8)
[2018-10-28 22:13] LABS: ALT (SGPT) 33 U/L (8-55); AST (SGOT) 15 U/L (5-34); Albumin 3.5 g/dL (3.5-5.0); Alkaline Phosphatase 121 U/L (40-150); Anion Gap 14 mmol/L (10-20); BUN (Urea Nitrogen) 16 mg/dL (9.8-20.1); Bilirubin, Total 0.3 mg/dL (0.2-1.2); Calc. Creatinine Clearance 0 mL/min (70-130); Calcium 9.6 mg/dL (7.8-10.44); Carbon Dioxide 28 mmol/L (22-29); Chloride 99 mmol/L (98-107); Estimated GFR-MDRD 70; Globulin 3.4 g/dL (2.4-3.5); Glucose 125 mg/dL (70-105); Potassium 3.7 mmol/L (3.5-5.1); Protein, Total 6.9 g/dL (6.0-8.3); Sodium 137 mmol/L (136-145)
[2018-10-29] MEDS ORDERED: Gabapentin 300 MG CAP PO SCH ×2 (00:30→22:15)
--- NOTE | 2018-10-29 07:37 | ULT ---
PRELIMINARY REPORT/[facility]/AFTER HOURS PROCEDURE EXAM: US Duplex Bilateral Lower Extremity Veins EXAM DATE/TIME: 10/28/2018 11:17 PM CLINICAL HISTORY: 57 years old, female; Edema, localized and other: Bilat redness; Lower extremity, bilateral; Leg, lower; Patient HX: Ble pain/edema/redness; Additional info: Recent neck surgery TECHNIQUE: Imaging protocol: Real-time duplex ultrasound of the Bilateral Lower Extremities with 2-D reyes scale, color Doppler flow and spectral waveform analysis with image documentation. Complete exam focused on the bilateral lower extremity veins. COMPARISON: No relevant prior studies available. FINDINGS: Right deep veins: Unremarkable. The common femoral, femoral, proximal profunda femoral and popliteal veins are patent without thrombus. Normal Doppler waveforms. Normal compressibility and/or augmentation response. Right superficial veins: Saphenofemoral junction is patent without thrombus. Left deep veins: Unremarkable. The common femoral, femoral, proximal profunda femoral and popliteal veins are patent without thrombus. Normal Doppler waveforms. Normal compressibility and/or augmentation response. Left superficial veins: Saphenofemoral junction is patent without thrombus. Soft tissues: Superficial edema. IMPRESSION: 1. Superficial edema. 2. No DVT. Thank you for allowing us to participate in the care of your patient. Dictated and Authenticated by: Luis Armando Estevez MD 10/29/2018 1:06 AM Central Time ([place] & [place]) FINAL REPORT BILATERAL LOWER EXTREMITY VENOUS DOPPLER ULTRASOUND: I agree with the report given by Dr. Luis Armando Estevez of [facility]. CODE QA Transcribed Date/Time: 10/29/2018 8:29 AM
[2018-10-29] MEDS ORDERED: Acetaminophen 325 MG TAB PO PRN (07:53)
[2018-10-29] MEDS ORDERED: HumaLOG 300 UNITS/3 ML VIAL SC PRN (07:53)
[2018-10-29] MEDS ORDERED: Ondansetron PF 4 MG/2 ML Vial IVP PRN (07:53)
[2018-10-29] MEDS ORDERED: Dextrose 50% Abboject 50 ML SYRINGE SLOW IVP PRN (07:53)
[2018-10-29] MEDS ORDERED: Dextrose 5% in Water 1,000 ML IV PRN (07:53)
[2018-10-29] MEDS ORDERED: Losartan/Hydrochlorothiazide 100 mg/25 mg Tablet PO SCH (09:00)
[2018-10-29] MEDS ORDERED: Vancomycin HCl 1 GM in Sodium Chloride 0.9% 250 ML 250 ML IVPB SCH (09:00)
[2018-10-29] MEDS ORDERED: Enoxaparin Sodium 40 MG/0.4 ML SYRINGE ONE (09:07)
[2018-10-29] MEDS ORDERED: Furosemide 20 MG/2 ML VIAL ONE (09:07)
--- NOTE | 2018-10-29 09:14 | HP ---
CHIEF COMPLAINT: Lower extremity edema and erythema. HISTORY OF PRESENT ILLNESS: The patient is a 57-year-old female with 5-day history of gradually increased swelling in the lower extremities along with erythema of the lower extremities. She denies any pain. She did not feel feverish. She did not have any fever or chills. She had recently surgery on her neck and she wears the C-collar on her neck. This was done by Dr. Rodriguez on the 08 of October. She was seen by Dr. Rodriguez's PA yesterday and she is doing quite well. Her numbness of her right upper extremity and motor weakness to the right upper extremity and right lower extremity is improving and she is feeling better in terms of her neurological problems she had prior to the neck surgery. She denied any nausea, vomiting, or diarrhea. She denied any chest pain. She denied any shortness of breath. She was recently diagnosed with diabetes mellitus. PAST MEDICAL HISTORY: Positive for, 1. Diabetes mellitus, type 2. 2. Hypertension. 3. History of asthma as a child. PAST SURGICAL HISTORY: 1. Laminectomy at C3-C6. 2. Vaginal cyst surgery. 3. Cholecystectomy. 4. Tubal ligation. SOCIAL HISTORY: She denies any alcohol intake, cigarette smoking, or using any illicit drugs. FAMILY HISTORY: Father had esophageal cancer and at the age of 69 and mother had heart disease and she at the age of 59. Her primary care physician is Dr. Rhonda Flower. Surrogate decision maker is her friend, Lazara. ALLERGIES: PENICILLIN. CURRENT MEDICATIONS: 1. Losartan/hydrochlorothiazide 100 mg/25 mg one tablet once a day. 2. Metformin 500 mg 2 tablets twice a day. 3. Gabapentin 300 mg 3 times a day. REVIEW OF SYSTEMS: Positive for sacral ulcer of 2 days duration. Otherwise, all 14 systems were reviewed and they were negative except findings in the HPI. PHYSICAL EXAMINATION: GENERAL: She is not in any distress during my visit. She is obese. VITAL SIGNS: Her blood pressure is 134/97, pulse is 90, respirations 18, temperature is 99.0 , and O2 saturation 95% on room air. HEENT: Head is atraumatic and normocephalic. Eyes are PERRLA. Sclerae are nonicteric. Oral mucosa is moist. NECK: Supple. She wears C-collar. LUNGS: Clear. HEART: S1 and S2 normal. No S3. No S4. No any murmur. ABDOMEN: Soft, obese, and tender. Bowel sounds present. No organomegaly. EXTREMITIES: Approximately 2+ peripheral edema on both lower extremities with erythema on the lower extremities below the knee and above ankles erythema process. Pulses diminished on both tibialis posterior and dorsalis pedis arteries similar bilaterally. NEUROLOGICAL: She is alert and oriented x4. There are no psychiatric abnormalities. Follows my commands. There is no any sensory deficit. There is mild difference between the right lower extremity strength and the lower extremity. The left side rated at 4/5. There is equal strength of both upper extremities. LABORATORY DATA: White count of 7.6, hemoglobin of 11.9, hematocrit 34.1, and platelet count is 277. Normal chemistry except for glucose, which is 125. IMAGING DATA: Doppler of the lower extremities did not show any abnormalities. No clots. IMPRESSION: 1. Peripheral edema with erythema of both lower extremities below the knees, which is most likely related to her obesity. Question infectious etiology because the changes are bilateral, but her temperature is elevated. Her normal temperature is running around 97 and a maximal temperature in the emergency room was 99.6. She got evaluated, but we will treat her for possible infectious etiology with vancomycin. She received her dose last night. She will have 1 g every 12 hours IV piggyback and the levels will be followed by the pharmacist. 2. Fever, which is most likely related to her lower extremity erythema, but also she has new gluteal ulcer, would be the source. Also, I am going to check her urine for any infection. 3. Diabetes mellitus, type 2, new diagnosis. 4. Normocytic anemia. We will check guaiac. 5. History of asthma as a child. 6. Hypertension. PLAN: Full admission. Condition is fair. Activity, bedrest and bathroom privileges. PT p.r.n. Urinalysis, IV Hep-Lock, vancomycin 1 g every 12 hours IV piggyback. Accu-Cheks a.c. and at bedtime and mild sliding-scale coverage. DVT prophylaxis with Lovenox 40 mg subcutaneously every 24 hours. Continue home medications except for metformin. Job ID: [id number]
[2018-10-29] MEDS ORDERED: HumaLOG 300 UNITS/3 ML VIAL ONE (09:38)
[2018-10-29] MEDS: Furosemide 20 MG/2 ML VIAL SLOW IVP SCH (09:46)
[2018-10-29] MEDS: Enoxaparin Sodium 40 MG/0.4 ML SYRINGE SC SCH (10:03)
[2018-10-29 10:05] VITALS: BMI 44.6
[2018-10-29] MEDS: Vancomycin HCl 1.75 GM in Sodium Chloride 0.9% 500 ML IVPB SCH (13:48)
[2018-10-29 22:29] LABS: Bilirubin Negative (Negative); Blood, Urine Negative (Negative); Clarity Clear (Clear); Glucose, Urine (Dipstick) Normal (Negative); Leukocyte Negative Leu/uL (Negative); Mucous/LPF Rare LPF (<2+); Nitrite Negative (Negative); Protein, Urine (Dipstick) Negative (Neg-Trace); RBC/HPF 0-3 HPF (0-3); Squamous Epithelial 0-3 HPF (0-3); Urobilinogen Normal mg/dL (Less than 2); WBC/HPF 0-3 HPF (0-3)
[2018-10-29 22:37] LABS: Bacteria/HPF Rare-Few HPF (None Seen)
[2018-10-30] MEDS: Vancomycin HCl 1.75 GM in Sodium Chloride 0.9% 500 ML IVPB SCH ×2 (00:38→12:14)
[2018-10-30 05:48] LABS: #Eosinphils 0.5 thou/uL (0.0-0.7); #Lymphocytes 2.1 thou/uL (1.20-3.40); #Monocytes 0.6 thou/uL (0.11-0.59); #Neutrophils 2.3 thou/uL (1.40-6.50); %Basophils 0.7 % (0.0-1.0); %Eosinophils 9.1 % (0.0-10.0); %Lymphocytes 38.1 % (21.0-51.0); %Monocytes 11.4 % (0.0-10.0); %Neutrophils 40.7 % (42.0-75.0); Hemoglobin 10.3 g/dL (12.0-16.0); Mean Corpuscular HGB CONC 34.4 g/dL (32.0-36.0); Mean Corpuscular Hemoglobin 31.9 pg (27.0-31.0); Mean Corpuscular Volume 92.8 fL (78.0-98.0); Mean Platelet Volume 7.1 fL (7.4-10.4); Platelet Count 226 thou/uL (130-400); RBC Distribution Width 12.8 % (11.5-14.5); Red Blood Cell (RBC) Count 3.23 mill/uL (4.20-5.40); White Blood Cell (WBC) Count 5.6 thou/uL (4.8-10.8)
[2018-10-30 06:18] LABS: Anion Gap 10 mmol/L (10-20); BUN (Urea Nitrogen) 14 mg/dL (9.8-20.1); Calc. Creatinine Clearance 160 mL/min (70-130); Calcium 8.9 mg/dL (7.8-10.44); Carbon Dioxide 31 mmol/L (22-29); Chloride 100 mmol/L (98-107); Estimated GFR-MDRD 77; Glucose 119 mg/dL (70-105); Potassium 3.2 mmol/L (3.5-5.1); Sodium 138 mmol/L (136-145)
[2018-10-30] MEDS ORDERED: tiZANidine HCl 4 MG TAB PO PRN (06:57)
[2018-10-30] MEDS ORDERED: Potassium Chloride 20 MEQ TAB PO SCH ×2 (07:15→14:00)
[2018-10-30] MEDS: Enoxaparin Sodium 40 MG/0.4 ML SYRINGE SC SCH (08:08)
[2018-10-30] MEDS: Furosemide 20 MG/2 ML VIAL SLOW IVP SCH (08:08)
[2018-10-30] MEDS: Losartan/Hydrochlorothiazide 100 mg/25 mg Tablet PO SCH (09:17)
--- NOTE | 2018-10-30 13:11 | PRG ---
DATE OF SERVICE: 10/30/2018 SUBJECTIVE: The patient is seen and examined at the bedside. She did some walking this morning. She feels better. OBJECTIVE: VITAL SIGNS: Her temperature is 98.5, maximal temperature was 99.3 yesterday, pulse is 85, respirations 16, O2 saturation is 96% on room air, and her blood pressure is 138/82. HEENT: She wears the C-collar. Her head is atraumatic and normocephalic. Her eyes are PERRLA. Sclerae are nonicteric. NECK: Not examined since she wears the collar. LUNGS: Clear. HEART: S1 and S2, normal. No S3. No S4. ABDOMEN: Obese, soft, and nontender. EXTREMITIES: 2+ peripheral edema with erythema on both lower extremities, somewhat improved. NEUROLOGIC: She is alert and oriented x4. There are no any sensory deficits. There is some mild weakness in the right lower extremity, but that is improving according to her. LABORATORY DATA: Showed white count of 5.6, hemoglobin 10.3, hematocrit 30.0. Chemistry; sodium of 138, potassium 3.2, chloride 100, CO2 of 31, BUN 14, creatinine 0.77. Glycemia is ranging from 124 to 166. Calcium 8.9. Urinalysis, within normal limits. IMPRESSION: 1. Peripheral edema with erythema of both lower extremities. The patient is treated with antibiotic for possible cellulitis since her temperature was elevated at 99.6, yesterday was 99.3, today is down below 99. I am going to change her to just one antibiotic. I will stop vancomycin and start her on Rocephin. 2. Diabetes mellitus, type 2, quite well controlled. 3. Hypertension. 4. History of asthma as a child. 5. Recent laminectomy at C3 through C6. PLAN: So, plan is to increase her IV Lasix to 40 q.12 hours. We are going to replace her potassium with 40 mEq of KCl x2 today, and we will see how her urine output looks like tomorrow. She did not put much out after one dose of Lasix, but this was just 20 mg, and she needs more diuresis because her swelling is not looking much better. We will continue DVT prophylaxis. We will check her kidney function and electrolytes tomorrow morning, and we will continue Accu-Cheks a.c. and at bedtime and coverage with mild sliding scale. Her urine came back normal. I was looking for any other source of temperature. Her Doppler was negative for DVTs. Job ID: [id number]
[2018-10-30] MEDS: Furosemide 40 MG/4 ML VIAL SLOW IVP SCH (16:30)
[2018-10-30] MEDS: Gabapentin 300 MG CAP PO SCH (20:05)
[2018-10-30 23:53] LABS: Vancomycin, Trough 16.4 ug/mL
[2018-10-31] MEDS: Furosemide 40 MG/4 ML VIAL SLOW IVP SCH ×2 (05:24→13:34)
[2018-10-31] MEDS: Enoxaparin Sodium 40 MG/0.4 ML SYRINGE SC SCH (08:23)
[2018-10-31] MEDS: Losartan/Hydrochlorothiazide 100 mg/25 mg Tablet PO SCH (08:23)
--- NOTE | 2018-10-31 09:39 | RAD ---
Exam: Chest one view HISTORY:Low-grade fever Comparison: 10/07/2018 FINDINGS: Cardiac silhouette: Normal Aorta: Atherosclerosis of the aortic knob Pulmonary vessels: Normal Costophrenic angles: Clear LUNGS: No masses or consolidation. Pneumothorax: None Osseous abnormalities: No acute abnormality. Cervical fusion hardware is noted. IMPRESSION: No acute cardiopulmonary process.
[2018-10-31 09:43] LABS: Anion Gap 14 mmol/L (10-20); BUN (Urea Nitrogen) 11 mg/dL (9.8-20.1); Calc. Creatinine Clearance 171 mL/min (70-130); Calcium 8.5 mg/dL (7.8-10.44); Carbon Dioxide 26 mmol/L (22-29); Chloride 99 mmol/L (98-107); Estimated GFR-MDRD 83; Glucose 131 mg/dL (70-105); Potassium 3.4 mmol/L (3.5-5.1); Sodium 136 mmol/L (136-145)
--- NOTE | 2018-10-31 17:18 | PRG ---
DATE OF SERVICE: 10/31/2018 SUBJECTIVE: The patient was seen and examined at bedside. She is doing significantly better. The swelling of her lower extremities is improving. Her appetite is fair. She still has some weakness in the right lower extremity according to her. OBJECTIVE: VITAL SIGNS: Blood pressure is 142/76, pulse is 95, temperature 99.0, respirations 22, and O2 saturation 95% on room air. HEENT: Head is atraumatic and normocephalic. Eyes are PERRLA. Sclerae are nonicteric. She wears a C-collar. LUNGS: Clear. HEART: S1 and S2 normal. No S3. No S4. No any murmur. ABDOMEN: Soft, nontender, and nondistended. EXTREMITIES: The swelling is decreased significantly and erythema is improved too. NEUROLOGIC: She is alert and oriented x4. There are no any motor or sensory deficits. Cranial nerves are intact. LABORATORY DATA: Sodium of 136, potassium 3.4, chloride 99, CO2 of 26, BUN 11, and creatinine 0.72. IMAGING STUDIES: Chest x-ray, no acute cardiopulmonary process. IMPRESSION: 1. Peripheral edema, significantly improved. 2. Cellulitis, significantly improved. 3. Hypomagnesemia. Magnesium level down to 1.3. 4. Hypokalemia, again potassium down to 3.4. 5. Diabetes mellitus, type 2, quite well controlled. 6. Hypertension. 7. History of asthma as a child. 8. Recent laminectomy at C3 through C6. PLAN: Plan to give her 3 g of magnesium IV piggyback and 40 mEq of potassium chloride. Continue Lasix 40 mg q.12 hours. Continue DVT prophylaxis. It is still unclear why she has low-grade temperature. Her urine looks good. Her chest x-ray came back normal. She does not have any atelectasis, but we are encouraging her to use incentive spirometry 10 times every hour, maybe this is going to clear her low-grade temperature. She should be able to go home tomorrow if she improved significantly. Job ID: [id number]
[2018-10-31] MEDS ORDERED: Magnesium Sulfate 3 GM in Sodium Chloride 0.9% 100 ML IVPB SCH (17:30)
[2018-10-31] MEDS ORDERED: Potassium Chloride 20 MEQ TAB PO SCH (17:30)
[2018-10-31] MEDS: Gabapentin 300 MG CAP PO SCH (20:40)
[2018-11-01] MEDS: Furosemide 40 MG/4 ML VIAL SLOW IVP SCH ×2 (06:00→13:49)
[2018-11-01 07:58] VITALS: BP 119/77; TEMP 98.8
[2018-11-01] MEDS: Losartan/Hydrochlorothiazide 100 mg/25 mg Tablet PO SCH (08:31)
[2018-11-01] MEDS: Enoxaparin Sodium 40 MG/0.4 ML SYRINGE SC SCH (08:31)
--- NOTE | 2018-11-03 01:44 | DIS ---
DATE OF ADMISSION: 10/29/2018 DATE OF DISCHARGE: 11/01/2018 DISCHARGE DIAGNOSES: 1. Lower extremity cellulitis. 2. Lower extremity edema bilaterally. 3. Diabetes mellitus type 2. 4. Normocytic anemia. 5. Hypertension. 6. Stage II gluteal decubitus. 7. Hypomagnesemia. 8. Mild hypokalemia. 9. History of asthma. 10. History of recent C3 through C6 laminectomy. HISTORY OF PRESENT ILLNESS: The patient is a 57-year-old female who had recently undergone cervical laminectomy by Dr. Rodriguez. She was subsequently following up in his office and was noted to have significant lower extremity edema with some erythema, subsequently presented to the emergency department after obtaining a venogram, which only showed superficial edema with no DVT. She initially had normal white count, but the erythema was concerning for the possibility of cellulitis. The patient was subsequently admitted to the hospital. HOSPITAL COURSE: She was started on antibiotics to cover cellulitis and did not have significant initial improvement. She then was started on some diuretics which facilitated significant resolution of her lower extremity edema. BNP was low at 35.4. Blood sugars remained well controlled. She did have some hypomagnesemia at 1.3 and potassium low at 3.4, which were replaced. Once the patient's edema had significantly improved, it was felt that she was stable for discharge to home. PHYSICAL EXAMINATION: VITAL SIGNS: On the day of discharge, temperature is 98.8, pulse 81, respirations 16, O2 saturation 95% on room air, BP 119/77. GENERAL: She is obese. Awake, alert. HEART: Regular rate and rhythm. LUNGS: Clear bilaterally. ABDOMEN: Soft, nontender, and nondistended. Positive bowel sounds. EXTREMITIES: Had no cyanosis or clubbing. There was no significant edema. Faint anterior calf erythema bilaterally, which the patient reported was normal for her. DISPOSITION: The patient was discharged home in stable condition. ACTIVITY: As tolerated, only restricted by her prior neurosurgical restrictions and she will remain in the C-collar. DIET: She will have a regular diet. DISCHARGE MEDICATIONS: She will be on Levaquin 500 mg p.o. daily and Florastor 250 mg p.o. daily. She will continue her usual home medications of metformin b.i.d., losartan-HCTZ, Zanaflex, and gabapentin. FOLLOWUP: She will follow up with Dr. Flower and she can return to the hospital should she have any problems prior to her followup. TIME SPENT: Total time in discharge activities greater than 50% of which was spent in [id number] time with the patient was 33 minutes. Job ID: [id number]
--- NOTE | 2018-11-05 08:26 | PQF ---
[employer] Charging Plug Placer Crystal Reports Winform Viewer RICO MOULTONAREMARY REN MD [id number] [facility] [id number] CLINICAL DOCUMENTATION CLARIFICATION FORM: POST DISCHARGE Addendum to original discharge summary date: ____ Late entry note date: 11/06/2018 DATE:11-05-18 ATTN:Mary Lilly Please exercise your independent, professional judgment in responding to the clarification form. Clinical indicators are provided on the bottom of this form for your review Can you please further specify the relationship of Cellulitis to DM? Please check appropriate box(s): [ ] Cellulitis due to Diabetes [ ] Cellulitis not due to Diabetes [ ] Other diagnosis please specify: [ x ] Unable to determine For continuity of documentation, please document condition throughout progress notes and discharge summary. Thank You. CLINICAL INDICATORS: H&P 10/[address] Pinto Chief complaint: Lower extremity edema and erythema H&P 10/[address] Pinto She was recently diagnosed with Diabetes Mellitus H&P 10/[address] Pinto Peripheral edema with erythema of both lower extremities below the knees which is most likely related to her obesity H&P 10/[address] Pinto Her doppler was negative for DVTs H&P 10/31pg1 Dr. Pinto The swelling is decreased significantly and erythema is improved too RISKS: H&P 10/29 Dr. Pinto- DM type II H&P 10/29 Dr. Pinto- HTN H&P 10/29 Dr. Pinto- Obesity H&P 10/29 Dr. Pinto- Sacral Ulcer stage II TREATMENT: Imaging 10/28- Venogram MAY 24- Metformin 500 mg tab BID MAY 24-Vancomycin Hcl IV 500 ml MAY 24- Furosemide 40 mg IV lasix (This form is maintained as a part of the permanent medical record) 2014 [employer] All Rights Reserved Emilee [email or web address] [not provided] MTDD
== END 2018-11-01 19:29 | disposition home or self-care (01) | DRG 603 ==
LOC: ERS 21:13 → OBSVTOIN 10-29 01:46 → INTOOBSV 10-29 01:46 → ERHOLD 10-29 01:46 → OBSVTOIN 10-29 08:00 → INTOOBSV 10-29 08:00 → T4-B 10-29 15:13
PROVIDERS: ADMIT Internal Medicine; ATTEND Internal Medicine
DX: L03.116 Cellulitis of left lower limb (principal); Z68.41 Body mass index [BMI] 40.0-44.9, adult; L03.115 Cellulitis of right lower limb; L89.151 Pressure ulcer of sacral region, stage 1; E11.9 Type 2 diabetes mellitus without complications; I50.9 Heart failure, unspecified; I11.0 Hypertensive heart disease with heart failure; J45.909 Unspecified asthma, uncomplicated; E66.9 Obesity, unspecified; E83.42 Hypomagnesemia; E87.6 Hypokalemia; D64.9 Anemia, unspecified; Z88.0 Allergy status to penicillin; Z79.899 Other long term (current) drug therapy; Z79.84 Long term (current) use of oral hypoglycemic drugs; Z90.49 Acquired absence of other specified parts of digestive tract; Z98.51 Tubal ligation status
CPT/HCPCS: 36415; 36416; 71045; 80048; 80053; 80202; 81001; 82274; 83605; 83735; 83880; 85025; 87040; 93970; 96365; 96366; J1650; J1940; J3370; J3475; J3490; J7050

== ENCOUNTER 2018-12-09 12:50 | Outpatient (CLI) | payer BC ==
--- NOTE | 2018-12-09 13:11 | RAD ---
EXAM: 3 views of the cervical spine HISTORY: Neck surgery on October 08, 2018 with fusion of C4-C6 COMPARISON: None FINDINGS: AP, lateral, and open mouth odontoid views of the cervical spine shows normal height and al ignment of the vertebral bodies and intervertebral discs without fracture or subluxation. The patient is status post anterior fusion of C4-C6 with a plate and screws. No perihardware lucency is s een. Disc spacers are in appropriate position within the intervening disc spaces. No prevertebral soft tissue swelling is seen. IMPRESSION: Postsurgical changes cervical spine without evidence of complication.
== END 2018-12-09 12:51 | disposition home or self-care (01) ==
LOC: TBSIIMAG 12:50
PROVIDERS: ATTEND Neurological Surgery
DX: M48.02 Spinal stenosis, cervical region (principal); Z98.890 Other specified postprocedural states
CPT/HCPCS: 72040